=== PATIENT | female | born 1945 | race Caucasian/White ===

== ENCOUNTER 2017-04-13 10:04 | Day surgery (SDC) | payer MEDICARE, OTHER ==
[~2017-04-13] VITALS: Ht 160 cm; Wt 114.0 kg
[~2017-04-13 10:04] MED LIST: ACET325 PO; ALBU90OI INH; ASPI325; Adult Low Dose81 MG PO; BUDE200IP INH; CLOB.05TC TOP; FLUT1DIS5 INH; FURO20 PO; GUAI120S1 PO; LEVO750 PO; LIVALO2 MG; LIVALO2 MG PO; LOSA25; LOSA25 PO; METF500 PO; METF500C PO; METO25 PO; Metrogel 1% 6060 GM; Metrogel 1% 6060 GM TP; NITR.4SL SL; Nitroglycerin0.4 MG SL; OMEP40CA12 PO; OMEPRAZOLE MAGN20 MG PO; OXYB5ER PO; OXYC5 PO; Omeprazole20 M1; PIRO10 PO; POTCHL20ER PO; Pravastatin Sod20 MG PO; Questran4 GM; SACC250C PO; SERT100 PO; SERT50 PO; [UNRECOGNIZED DRUG - OTHER] PO
== END 2017-04-13 12:25 | disposition home or self-care (01) ==
LOC: ORSCSDS 10:04
PROVIDERS: Internal Medicine Gastroenterology
PROC: 0DB58ZX Excision of Esophagus, Via Natural or Artificial Opening Endoscopic, Diagnostic (ICD-10-PCS; principal; 2017-04-13 11:15)
PROC: 0D758ZZ Dilation of Esophagus, Via Natural or Artificial Opening Endoscopic (ICD-10-PCS; principal; 2017-04-13 11:15)
DX: R13.10 Dysphagia, unspecified (principal); K22.2 Esophageal obstruction; K44.9 Diaphragmatic hernia without obstruction or gangrene; G47.30 Sleep apnea, unspecified; K21.9 Gastro-esophageal reflux disease without esophagitis; E11.9 Type 2 diabetes mellitus without complications; I10 Essential (primary) hypertension; E78.1 Pure hyperglyceridemia; J45.909 Unspecified asthma, uncomplicated; E66.01 Morbid (severe) obesity due to excess calories; Z79.82 Long term (current) use of aspirin; Z79.84 Long term (current) use of oral hypoglycemic drugs; Z79.899 Other long term (current) drug therapy
CPT/HCPCS: 82947; 88305; J2250

== ENCOUNTER 2017-11-07 08:04 | Day surgery (SDC) | payer MEDICARE, OTHER ==
[~2017-11-07] VITALS: Ht 160 cm; Wt 106.3 kg
[2017-11-07] MEDS ORDERED: LOSA25 (08:45)
== END 2017-11-07 10:17 | disposition home or self-care (01) ==
LOC: ORSCSDS 08:04
PROVIDERS: Internal Medicine Gastroenterology
PROC: 0DBM8ZX Excision of Descending Colon, Via Natural or Artificial Opening Endoscopic, Diagnostic (ICD-10-PCS; principal; 2017-11-07 09:15)
PROC: 0DBK8ZX Excision of Ascending Colon, Via Natural or Artificial Opening Endoscopic, Diagnostic (ICD-10-PCS; principal; 2017-11-07 09:15)
DX: R10.32 Left lower quadrant pain (principal); R19.4 Change in bowel habit; D12.2 Benign neoplasm of ascending colon; D12.4 Benign neoplasm of descending colon; Z86.010 Personal history of colon polyps; K57.30 Diverticulosis of large intestine without perforation or abscess without bleeding; K64.8 Other hemorrhoids; G47.33 Obstructive sleep apnea (adult) (pediatric); I10 Essential (primary) hypertension; I25.10 Atherosclerotic heart disease of native coronary artery without angina pectoris; E11.9 Type 2 diabetes mellitus without complications; E66.01 Morbid (severe) obesity due to excess calories; Z68.41 Body mass index [BMI] 40.0-44.9, adult; Z79.899 Other long term (current) drug therapy; Z79.82 Long term (current) use of aspirin
CPT/HCPCS: 82947; 88305; J7120

== ENCOUNTER → 2017-12-27 | Outpatient (CLI) | payer MEDICARE, OTHER | END | disposition home or self-care (01) | LOC: LAB 10:00 → LAB SHORT 10:00 | DX: R30.0 Dysuria (principal) | CPT/HCPCS: 87077; 87086; 87186 ==

== ENCOUNTER → 2021-02-12 | Outpatient (CLI) | payer MEDICARE, OTHER ==
[~2021-02-12] MED LIST changes: +ALLERCLEAR10 MG PO
[2021-02-12 13:47] LABS: Source, Urine Clean Catch
[2021-02-12 15:26] LABS: Appearance, Urine Cloudy (Clear); Bilirubin, Urine Neg (Neg); Blood, Urine 1+ (Neg); Color, Urine Yellow (P-Yellow); Glucose Qualitative, Urine Neg (Neg); Ketones, Urine Neg (Neg); Leukocyte Esterase, Urine 3+ (Neg); Nitrite, Urine Pos (Neg); Protein, Urine 2+ (Neg); Urobilinogen, Urine NORM (Normal)
[2021-02-12 16:03] LABS: Squamous Epithelial Cells Mod /hpf (Few)
[2021-02-12 16:05] LABS: Bacteria Many /hpf
== END ==
LOC: LAB 13:46 → LAB SHORT 13:46
PROVIDERS: Internal Medicine
DX: N30.00 Acute cystitis without hematuria (principal)
CPT/HCPCS: 81001; 87077; 87086; 87186